=== PATIENT | male | born 1990 | race Caucasian/White ===

== ENCOUNTER 2019-03-02 09:22 | Emergency (ER) | payer OTHER ==
[2019-03-02 09:26] VITALS: BP 118/79; PULSE 88; TEMP 98.3; BMI 27.4
--- NOTE | 2019-03-02 09:31 | PDOC ---
History of Present Illness - General Chief Complaint: Sore Throat Stated Complaint: SORE THROAT/FEVER Time Seen by Provider: 03/02/19 09:29 History Source: Patient - History of Present Illness Initial Comments: 03/02/19 09:42 28-year-old female male complaining of sore throat since yesterday with chills and subjective fever. Patient reports difficulty swallowing due to tonsils swelling. Denies nausea, vomiting, abdominal pain, cough, nasal congestion. Denies sick contacts. No past medical history Past History - Past Medical History Allergies/Adverse Reactions: Allergies Allergy/AdvReac Type Severity Reaction Status Date / Time No Known Allergies Allergy Verified 03/02/19 09:23 Home Medications: Ambulatory Orders Amoxicillin/Potassium Clav [Augmentin 875-125 Tablet] 1 each PO BID #20 tablet 03/02/19 Ibuprofen 400 mg PO QID PRN #14 tablet 03/02/19 - Immunization History Immunization Up to Date: Yes - Psycho Social/Smoking Cessation Hx Smoking History: Current every day smoker Have you smoked in the past 12 months: No Information on smoking cessation initiated: Yes Hx Alcohol Use: No Substance Use Type: None *Physical Exam - Vital Signs Last Vital Signs Temp Pulse Resp BP Pulse Ox 98.3 F 88 18 118/79 99 03/02/19 09:25 03/02/19 09:25 03/02/19 09:25 03/02/19 09:25 03/02/19 09:25 - Physical Exam General Appearance: Yes: Appropriately Dressed HEENT: positive: Tonsillar Exudate, Tonsillar Erythema (b/l tonisillar erythema and exudate) Respiratory/Chest: positive: Lungs Clear, Normal Breath Sounds Cardiovascular: positive: Regular Rhythm, Regular Rate Integumentary: positive: Normal Color, Dry, Warm Neurologic: positive: Fully Oriented, Alert, Normal Mood/Affect Medical Decision Making - Medical Decision Making 03/02/19 09:43 A: tonsillitis P: rapid strep ibuprofen decadron augmentin Discharge - Discharge Information Problems reviewed: Yes Clinical Impression/Diagnosis: Tonsillitis with exudate - Additional Discharge Information Prescriptions: Amoxicillin/Potassium Clav [Augmentin 875-125 Tablet] 1 each PO BID #20 tablet Ibuprofen 400 mg PO QID PRN #14 tablet PRN Reason: Fever - Follow up/Referral - Patient Discharge Instructions Patient Printed Discharge Instructions: DI for Pharyngitis/Tonsillopharyngitis -- Adult Additional Instructions: Gargle with warm salty water take ibuprofen every 6 hours as needed for pain take tylenol every 4 hours as needed for pain throw away toothbrush in 3-4 days do not share cups or utensil with other Take augmentin as prescribed follow up with your doctor as soon as possible. Additional Instructions: Please call your personal physician to report your Emergency Department visit and to report your progress, if any. If there is no improvement in symptoms in 2 days call your physician. Return to the Emergency Department for any worsening symptoms. - Post Discharge Activity
[2019-03-02] MEDS ORDERED: IBUPROFEN 600 MG TABLET (FP) PO ONE ×2 (09:39→09:41)
[2019-03-02] MEDS ORDERED: AMOX TR/POT CLAV 875MG/125MG TABLETS (FP) PO ONE (09:58)
[2019-03-02] MEDS ORDERED: AMOX TR/POT CLAV 875MG/125MG TABLETS (FP) ONE (10:02)
== END 2019-03-02 10:18 | disposition home or self-care (01) ==
LOC: JERFT 09:22
DX: J03.90 Acute tonsillitis, unspecified (principal); F17.210 Nicotine dependence, cigarettes, uncomplicated
CPT/HCPCS: 87880; 99281-25